=== PATIENT | male | born 1970 | race Caucasian/White ===

== ENCOUNTER 2018-03-12 08:11 | Day surgery (SDC) | payer OTHER ==
[~2018-03-12 08:11] MED LIST: LIDOCAINE HCL 1% MPF 30 SOL ONE; PROPOFOL 500 MG/50 ML EMU IV ONE
[2018-03-12 10:16] VITALS: TEMP 97.2
[2018-03-12 10:40] VITALS: RESP 20
[2018-03-12 10:59] VITALS: BP 118/75; PULSE 65; O2SAT 100
== END 2018-03-12 11:12 | disposition home or self-care (01) | DRG 951 ==
LOC: SURG 08:11
PROVIDERS: ATTEND Internal Medicine Gastroenterology
DX: Z83.71 Family history of colonic polyps (principal); K57.32 Diverticulitis of large intestine without perforation or abscess without bleeding; K59.00 Constipation, unspecified; K62.89 Other specified diseases of anus and rectum; K64.8 Other hemorrhoids; K63.5 Polyp of colon; Z12.11 Encounter for screening for malignant neoplasm of colon
CPT/HCPCS: 99001; J2001; J2704

== ENCOUNTER 2018-03-23 22:00 | Emergency (ER) | payer OTHER ==
[2018-03-23 22:06] VITALS: BP 113/84; PULSE 63; RESP 18; TEMP 97; O2SAT 93
[2018-03-23] MEDS ORDERED: LIDOCAINE HCL 1% MPF 30 SOL ONE (22:13)
[2018-03-23] MEDS ORDERED: LIDOCAINE HCL 1% 50 MG/5 ML SOL INFIL ONE (22:18)
[2018-03-23] MEDS ORDERED: BACITRACIN 500 U/GM OIN TOP ONE ×2 (22:26→22:27)
[2018-03-23] MEDS ORDERED: TDAP VACCINE 0.5 ML SUS IM ONE ×2 (22:29→22:37)
== END 2018-03-23 22:52 | disposition home or self-care (01) | DRG 605 ==
LOC: ED 22:00
DX: S61.217A Laceration without foreign body of left little finger without damage to nail, initial encounter (principal); V29.9XXA Motorcycle rider (driver) (passenger) injured in unspecified traffic accident, initial encounter
CPT/HCPCS: 12001; 90471; 90715; 99284; A6402; A6446; A9270-GY; J2001

== ENCOUNTER 2018-06-23 18:12 | Emergency (ER) | payer OTHER ==
[2018-06-23 18:29] VITALS: PULSE 64; RESP 20; TEMP 97.9
[2018-06-23] MEDS ORDERED: ASPIRIN 81 MG CHEWABLE CTB PO ONE (18:55)
[2018-06-23] MEDS ORDERED: KETOROLAC TROMETHAMINE 30 MG/ML SOL IM ONE (18:56)
[2018-06-23] MEDS ORDERED: ASPIRIN 81 MG CHEWABLE CTB ONE (19:19)
[2018-06-23] MEDS ORDERED: KETOROLAC TROMETHAMINE 30 MG/ML SOL ONE (19:19)
[2018-06-23 19:28] VITALS: BP 149/91; O2SAT 97
== END 2018-06-23 22:43 | disposition home or self-care (01) | DRG 301 ==
LOC: ED 18:12
DX: I80.01 Phlebitis and thrombophlebitis of superficial vessels of right lower extremity (principal); M79.661 Pain in right lower leg; M79.89 Other specified soft tissue disorders
CPT/HCPCS: 96372; 99283; J1885